=== PATIENT | male | born 1945 | race Caucasian/White ===

== ENCOUNTER → 2019-07-28 09:17 | Outpatient (CLI) | payer MEDICARE, OTHER, SELFPAY ==
--- NOTE | 2019-07-28 | DI.RAD.S_ITS ---
PROCEDURE: XR ABDOMEN 1V INDICATIONS: Calculus of kidney TECHNIQUE: One view of the abdomen acquired. COMPARISON: [facility], CR, XR ABDOMEN 1 VIEW, 06/30/2018, 11:01. [facility], CR, KUB XRAY (1 VIEW ABDOMEN), 04/13/2017, 8:00. [facility], CR, KUB XRAY (1 VIEW ABDOMEN), 08/26/2016, 14:08. [facility], CR, KUB XRAY (1 VIEW ABDOMEN), 02/07/2016, 9:29. [facility], CR, KUB XRAY (1 VIEW ABDOMEN), 01/07/2016, 13:32. CR, XR NEPHROSTOGRAM, 01/02/2016, 9:39. XA, NEPHROSTOMY WIRE PLACEMENT (P), 01/01/2016, 12:00. [facility], CT, KIDNEY/ URETER/BLADDER, 08/17/2012, 13:50. [facility], CR, ABDOMEN 1 VIEW, 09/28/2012, 7:24. FINDINGS: Surgical changes and devices: None. Bowel: Bowel gas pattern is normal. Soft tissues: No new suspicious abdominal calcifications. The multiple calculi seen over the right kidney, greater superiorly than inferiorly, have not appreciably changed from 06/30/18 but appears slightly larger than on the comparison plain film from 04/13/17. Faintly visualized small calcifications are present over the expected position of the collecting system of the left kidney, faintly visualized through colon content. Visualized solid organ contours appear normal in size. Bones: No suspicious bony lesions. IMPRESSION: No ureteral stone is suspected. Slight enlargement of right-sided urinary tract stones in the collecting system of the right kidney from 2016 but no change from June of last year. Faintly visualized small calculi appear present within the collecting system of the left kidney, measuring approximately 2 x 3 mm each. Dictated by: Selvin Patel M.D. on 07/28/2019 at 10:20 Approved by: Selvin Patel M.D. on 07/28/2019 at 10:22
== END ==
PROVIDERS: PCP Internal Medicine; Referring Provider Urology; Visit Provider Urology
DX: N20.0 Calculus of kidney (principal)
CPT/HCPCS: 74018

== ENCOUNTER 2020-06-12 11:47 | Emergency (ER) | payer MEDICARE, OTHER, SELFPAY ==
[2020-06-12] VITALS (18 sets, daily range): BP systolic 102–130; BP diastolic 53–73; PULSE 46–66; RESP 19–32; TEMP 36.5; O2SAT 96–99
--- NOTE | 2020-06-12 12:00 | DI.RAD.S_ITS ---
PROCEDURE: XR CHEST 1V INDICATIONS: chest pain TECHNIQUE: One view of the chest was acquired. COMPARISON: [facility], CR, CHEST 1VW, 08/19/2012, 11:55. [facility], CR, CHEST 2 VIEW, 12/25/2015, 14:22. FINDINGS: Surgical changes and devices: None. Lungs and pleura: Lung volumes are slightly diminished. Lungs are otherwise clear. No pleural effusions or pneumothorax. Mediastinum: Mediastinal contours appear normal. Heart size is normal. Bones and chest wall: No suspicious bony lesions. Overlying soft tissues appear unremarkable. IMPRESSION: Chest without acute cardiopulmonary abnormalities. Dictated by: Huseyin Domínguez M.D. on 06/12/2020 at 12:27 Approved by: Huseyin Domínguez M.D. on 06/12/2020 at 12:28
--- NOTE | 2020-06-12 12:18 | ED.GENADULT ---
HPI - General Adult General Chief complaint: Syncope Stated complaint: Syncope Time Seen by Provider: 06/12/20 12:03 Source: patient and EMS Mode of arrival: EMS History of Present Illness HPI narrative: 74-year-old gentleman with a history of coronary artery disease, hyperlipidemia, BPH presents after having a syncopal episode and [place]. Notes that he had a minor amount of nausea after taking medications on an empty stomach around 830 this morning but not so much that it did hurt him from getting [place] 9. He notes that he has dozed off while sitting at the machines previously. He has no recollection of the event. He describes no acute pain or trauma from the fall itself. He has no chest pain, dyspnea, abdominal pain, flank pain, dysuria, headache, rashes. He does note that he has had some mild diaphoresis associated with the fall. He was initially seen by medics and declined transport at that time. He then had some chills and call the medics back thinking that further evaluation might make more sense. Related Data Home Medications Medication Instructions Recorded Confirmed [CERTIZINE HCL] 10 mg PO AM #0 11/18/12 [OMEPRAZOLE] 20 mg PO #0 11/18/12 allopurinol 100 mg PO BID #0 11/18/12 isosorbide mononitrate 60 mg PO #0 11/18/12 metoprolol tartrate 50 mg PO BID #0 11/18/12 niacin [Niaspan Extended-Release] 500 mg PO QDAY #0 11/18/12 simvastatin [Zocor] 80 mg PO HS #0 11/18/12 tamsulosin [Flomax] 0.4 mg PO HS #0 11/18/12 Review of Systems Review of Systems Narrative: Remainder of review of systems including constitutional, ENT, cardiovascular, respiratory, GI, , musculoskeletal, skin, neurologic and psychiatric systems reviewed and are unremarkable except as noted in HPI. Patient History Medical History BPH (benign prostatic hyperplasia) Coronary artery disease Gout Hyperlipidemia Hypertension Social History Smoking Status: Former smoker Smoking Status: Former smoker alcohol intake frequency: 0-2 drinks per day Substance Use Type: does not use Exam Narrative Exam Narrative: General: Obese, disheveled, in no acute distress. Able to give a complete and coherent history. Well-nourished well-developed HEENT: Moist mucous membranes, normal sclera with reactive pupils, Neck: No JVD, supple Respiratory: Lungs are clear to auscultation, no wheezing no rales no rhonchi. Full and symmetrical air movement Cardiac: Regular rate and rhythm no murmurs no bruits Abdomen: Soft nontender good bowel tones, no flank pain Skin: Warm and dry, no rashes Neurologic: Grossly neurologically intact with no obvious asymmetries or abnormalities Extremities: No trauma, well perfused, 1+ bilateral lower extremity edema without chronic venous stasis changes Psych: Cooperative, appropriate insight and affect Initial Vital Signs Initial Vital Signs: Vital Signs Temperature 97.7 F 06/12/20 11:40 Pulse Rate 51 L 06/12/20 11:40 Respiratory Rate 32 H 06/12/20 11:40 Blood Pressure 126/60 06/12/20 11:40 Pulse Oximetry 98 06/12/20 11:40 Course Orders Ordered: ED Orders 06/12/20 11:59 COVID19 Stat 06/12/20 12:00 XR chest 1V Stat EKG-12 Lead Stat 06/12/20 12:25 Complete Blood Count AUTO DIFF Stat Comprehensive Metabolic Panel Stat Lipase Stat Magnesium Stat Partial Thromboplastin Time Stat Prothrombin Time INR Stat Troponin & CK Cardiac Panel Stat 06/12/20 12:53 Lactate (Lactic Acid) Stat 06/12/20 13:05 Blood Culture Stat 06/12/20 14:36 Troponin I Stat Discontinued Medications Sodium Chloride (Normal Saline 0.9%) 500 mls @ 1,000 mls/hr IV BOLUS ONE Stop: 06/12/20 14:09 Last Infusion: 06/12/20 14:53 Dose: 0 mls/hr Documented by: Admin: 06/12/20 13:42 Dose: 1,000 mls/hr Documented by: LALY Vital Signs Vital signs: Vital Signs - 8 hr 06/12/20 11:40 06/12/20 11:54 06/12/20 12:00 Temperature 97.7 F Pulse Rate 51 L 50 L 60 Pulse Rate [Orthostatic Lying] Pulse Rate [Orthostatic Sitting] Pulse Rate [Orthostatic Standing] Respiratory Rate 32 H 23 24 Blood Pressure 126/60 Blood Pressure [Orthostatic Lying] Blood Pressure [Orthostatic Sitting] Blood Pressure [Orthostatic Standing] Pulse Oximetry 98 99 97 06/12/20 12:01 06/12/20 12:16 06/12/20 12:30 Temperature Pulse Rate 48 L 51 L 49 L Pulse Rate [Orthostatic Lying] Pulse Rate [Orthostatic Sitting] Pulse Rate [Orthostatic Standing] Respiratory Rate 21 23 23 Blood Pressure 116/60 110/55 L 109/56 L Blood Pressure [Orthostatic Lying] Blood Pressure [Orthostatic Sitting] Blood Pressure [Orthostatic Standing] Pulse Oximetry 98 98 97 06/12/20 12:45 06/12/20 13:00 06/12/20 13:10 Temperature Pulse Rate 46 L 50 L 50 L Pulse Rate [Orthostatic Lying] Pulse Rate [Orthostatic Sitting] Pulse Rate [Orthostatic Standing] Respiratory Rate 23 22 24 Blood Pressure 102/53 L 112/59 L Blood Pressure [Orthostatic Lying] Blood Pressure [Orthostatic Sitting] Blood Pressure [Orthostatic Standing] Pulse Oximetry 99 98 99 06/12/20 13:15 06/12/20 13:30 06/12/20 13:45 Temperature Pulse Rate 47 L 49 L 49 L Pulse Rate [Orthostatic Lying] Pulse Rate [Orthostatic Sitting] Pulse Rate [Orthostatic Standing] Respiratory Rate 22 22 22 Blood Pressure 112/55 L 111/61 105/59 L Blood Pressure [Orthostatic Lying] Blood Pressure [Orthostatic Sitting] Blood Pressure [Orthostatic Standing] Pulse Oximetry 99 98 96 06/12/20 14:00 06/12/20 14:15 06/12/20 14:30 Temperature Pulse Rate 55 L 51 L 55 L Pulse Rate [Orthostatic Lying] Pulse Rate [Orthostatic Sitting] Pulse Rate [Orthostatic Standing] Respiratory Rate 23 24 24 Blood Pressure 106/60 109/64 105/72 Blood Pressure [Orthostatic Lying] Blood Pressure [Orthostatic Sitting] Blood Pressure [Orthostatic Standing] Pulse Oximetry 97 97 97 06/12/20 14:45 06/12/20 15:00 06/12/20 15:24 Temperature Pulse Rate 51 L 54 L Pulse Rate [Orthostatic Lying] 56 L Pulse Rate [Orthostatic Sitting] 66 Pulse Rate [Orthostatic Standing] 65 Respiratory Rate 19 20 Blood Pressure 105/73 107/67 Blood Pressure [Orthostatic Lying] 114/66 Blood Pressure [Orthostatic Sitting] 120/66 Blood Pressure [Orthostatic Standing] 130/60 Pulse Oximetry 98 97 Medical Decision Making Medical Records Medical records reviewed: Yes I reviewed the patient's medical records. Lab Data Lab results reviewed: Yes I reviewed the patient's lab results. Result diagrams: 06/12/20 12:25 06/12/20 12:25 Labs: Lab Results 06/12/20 06/12/20 06/12/20 Range/Units 11:59 12:25 12:25 WBC 6.7 (4.5-11.0) X10^3/uL RBC 3.72 L (4.5-5.9) X10^6/uL Hgb 11.9 L (13.5-17.5) g/dL Hct 36.9 L (41-53) % MCV 99.2 (80-100) fL MCH 32.1 (26-34) PG MCHC 32.3 (30-36) % RDW 14.4 (11.6-14.8) % Plt Count 105 L (150-400) X10^3/uL Neut % (Auto) 74.0 (50-75) % Lymph % (Auto) 17.5 L (25-40) % [place] % (Auto) 5.4 (3-14) % Eos % (Auto) 2.5 (2-4) % Baso % (Auto) 0.6 (0-2) % Neut # (Auto) 5000 (5020-6536) /uL Lymph # (Auto) 1200 (3622-5680) /uL [place] # (Auto) 400 (0-900) /uL Eos # (Auto) 200 (0-450) /uL Baso # (Auto) 0 (0-100) /uL PT 11.2 (10.1-12.7) SECONDS INR 1.0 (0.9-1.3) APTT 19 L (26.4-36.2) SECONDS Sodium (137-145) mmol/L Potassium (3.4-5.1) mmol/L Chloride (98-107) mmol/L Carbon Dioxide (22-32) mmol/L BUN (9-20) mg/dL Creatinine (0.66-1.25) mg/dL Estimated GFR (>60) mL/min BUN/Creatinine Ratio (6-22) Glucose (80-110) mg/dL Lactate (0.7-2.1) mmol/L Calcium (8.4-10.2) mg/dL Magnesium (1.6-2.3) mg/dL Total Bilirubin (0.2-1.3) mg/dL AST (17-59) IU/L ALT (<50) IU/L Alkaline Phosphatase (38-126) U/L Total Creatine Kinase (55-170) U/L CK-MB (CK-2) CK-MB (CK-2) Rel Index Troponin I (0.01-0.034) ng/mL Total Protein (6.3-8.2) g/dL Albumin (3.5-5.0) g/dL Globulin (1.7-4.1) g/dL Albumin/Globulin Ratio (1.0-2.8) Lipase (23-300) U/L SARS-CoV-2 (PCR) Negative (Negative) 06/12/20 06/12/20 06/12/20 Range/Units 12:25 12:53 14:36 WBC (4.5-11.0) X10^3/uL RBC (4.5-5.9) X10^6/uL Hgb (13.5-17.5) g/dL Hct (41-53) % MCV (80-100) fL MCH (26-34) PG MCHC (30-36) % RDW (11.6-14.8) % Plt Count (150-400) X10^3/uL Neut % (Auto) (50-75) % Lymph % (Auto) (25-40) % [place] % (Auto) (3-14) % Eos % (Auto) (2-4) % Baso % (Auto) (0-2) % Neut # (Auto) (2061-4367) /uL Lymph # (Auto) (3431-7136) /uL [place] # (Auto) (0-900) /uL Eos # (Auto) (0-450) /uL Baso # (Auto) (0-100) /uL PT (10.1-12.7) SECONDS INR (0.9-1.3) APTT (26.4-36.2) SECONDS Sodium 141 (137-145) mmol/L Potassium 4.3 (3.4-5.1) mmol/L Chloride 108 H (98-107) mmol/L Carbon Dioxide 27 (22-32) mmol/L BUN 34 H (9-20) mg/dL Creatinine 2.13 H (0.66-1.25) mg/dL Estimated GFR 30.4 L (>60) mL/min BUN/Creatinine Ratio 16.0 (6-22) Glucose 144 H (80-110) mg/dL Lactate 1.3 (0.7-2.1) mmol/L Calcium 8.7 (8.4-10.2) mg/dL Magnesium 1.7 (1.6-2.3) mg/dL Total Bilirubin 0.4 (0.2-1.3) mg/dL AST 26 (17-59) IU/L ALT 16 (<50) IU/L Alkaline Phosphatase 71 (38-126) U/L Total Creatine Kinase 65 (55-170) U/L CK-MB (CK-2) TNP CK-MB (CK-2) Rel Index TNP Troponin I < 0.012 < 0.012 (0.01-0.034) ng/mL Total Protein 6.1 L (6.3-8.2) g/dL Albumin 3.5 (3.5-5.0) g/dL Globulin 2.6 (1.7-4.1) g/dL Albumin/Globulin Ratio 1.3 (1.0-2.8) Lipase 91 (23-300) U/L SARS-CoV-2 (PCR) (Negative) Urine Dip Bedside Urine Glucose Negative Bedside Urine Bilirubin - Negative Bedside Urine Ketone - Negative Urine Specific [place] 1.030 Bedside Urine Occult Blood + Bedside Urine pH 6.0 Bedside Urine Protein - Negative Bedside Urine Urobilinogen - Negative Bedside Urine Nitrite - Negative Bedside Urine Leukocytes - Negative Esterase Point of care testing: Urine Dip Bedside Urine Glucose Negative Bedside Urine Bilirubin - Negative Bedside Urine Ketone - Negative Urine Specific [place] 1.030 Bedside Urine Occult Blood + Bedside Urine pH 6.0 Bedside Urine Protein - Negative Bedside Urine Urobilinogen - Negative Bedside Urine Nitrite - Negative Bedside Urine Leukocytes - Negative Esterase Imaging Data Chest x-ray: Radiologist's Impression: FINDINGS: Surgical changes and devices: None. Lungs and pleura: Lung volumes are slightly diminished. Lungs are otherwise clear. No pleural effusions or pneumothorax. Mediastinum: Mediastinal contours appear normal. Heart size is normal. Bones and chest wall: No suspicious bony lesions. Overlying soft tissues appear unremarkable. IMPRESSION: Chest without acute cardiopulmonary abnormalities. Dictated by: Huseyin Domínguez M.D. on 06/12/2020 at 12:27 ECG Data Attestation: I personally reviewed and interpreted this ECG as follows: Interpretation: Sinus Tahir at a rate of 58 Right bundle branch and left anterior fascicular block PVCs No acute ischemic changes No priors for comparison MDM Narrative Medical decision making narrative: 74-year-old gentleman with history of syncopal episode this morning while sitting in front of a slot machine. Initial troponin COVID and chest x-ray are all unremarkable. He is completely asymptomatic at this point. No evidence of acute infection. Tele monitoring shows episodes of sinus bradycardia into the 40s with patient being completely asymptomatic. Discharge Plan Departure Patient Disposition: Home Clinical Impression: Syncope due to orthostatic hypotension Instructions: DI for Syncope in Adults (Fainting) Activity Restrictions/Additional Instructions: Thank you for coming in today I did not find any evidence of acute infection today. Similarly, there was no evidence of heart attack, stroke, blood clot in her lungs, acute bleeding, abdominal infection or any other finding that could be a life-threatening explanation for your passing out today I suspect that the reason that you did pass out was related to your medications taken on an empty stomach. I would recommend that you have a small bit of food at least when you take your morning medications and do continue all of your morning medications. If you have new or worsening symptoms, please feel free to return to the emergency department Prescriptions: No Action allopurinol 100 MG tablet 100 mg PO BID Qty: 0 RF: 0 isosorbide mononitrate 60 MG tablet extended release 24 hr 60 mg PO Qty: 0 RF: 0 tamsulosin [Flomax] 0.4 MG capsule,extended release 24hr 0.4 mg PO HS Qty: 0 RF: 0 metoprolol tartrate 50 MG tablet 50 mg PO BID Qty: 0 RF: 0 niacin [Niaspan Extended-Release] 500 MG tablet extended release 24 hr 500 mg PO QDAY Qty: 0 RF: 0 simvastatin [Zocor] 5 MG tablet 80 mg PO HS Qty: 0 RF: 0 [OMEPRAZOLE] 20 mg PO Qty: 0 RF: 0 [CERTIZINE HCL] 10 mg PO AM Qty: 0 RF: 0 Referrals: Alonso Barr MD [Primary Care Provider] -
[2020-06-12 12:34] LABS: Add Manual Diff / Slide Review NO; Basophils Absolute Auto 0 /uL (0-100); Basophils Percent Auto 0.6 % (0-2); Eosinophils Absolute Auto 200 /uL (0-450); Eosinophils Percent Auto 2.5 % (2-4); Hematocrit 36.9 % (41-53); Hemoglobin 11.9 g/dL (13.5-17.5); Lymphocytes Absolute Auto 1200 /uL (1100-4500); Lymphocytes Percent Auto 17.5 % (25-40); Mean Corpuscular HGB Conc 32.3 % (30-36); Mean Corpuscular Hemoglobin 32.1 PG (26-34); Mean Corpuscular Volume 99.2 fL (80-100); Monocytes Absolute Auto 400 /uL (0-900); Monocytes Percent Auto 5.4 % (3-14); Neutrophils Absolute Auto 5000 /uL (1500-7000); Platelet Count 105 X10^3/uL (150-400); Red Blood Cell Count 3.72 X10^6/uL (4.5-5.9); Red Cell Distribution Width 14.4 % (11.6-14.8); White Blood Cell Count 6.7 X10^3/uL (4.5-11.0)
[2020-06-12 12:34] LABS: COVID19 -Nasal RAPID Negative (Negative)
[2020-06-12 12:35] LABS: Prothrombin Time 11.2 SECONDS (10.1-12.7)
[2020-06-12 12:37] LABS: PTT Partial Thromboplastin Tim 19 SECONDS (26.4-36.2)
[2020-06-12 12:39] LABS: Alanine Aminotransferase 16 IU/L (<50); Albumin 3.5 g/dL (3.5-5.0); Albumin Globulin Ratio 1.3 (1.0-2.8); Alkaline Phosphatase 71 U/L (38-126); Aspartate Aminotransferase 26 IU/L (17-59); Bilirubin Total 0.4 mg/dL (0.2-1.3); Blood Urea Nitrogen 34 mg/dL (9-20); Calcium 8.7 mg/dL (8.4-10.2); Carbon Dioxide 27 mmol/L (22-32); Chloride 108 mmol/L (98-107); Creatine Kinase 65 U/L (55-170); Estimated Glomerular Filt Rate 30.4 mL/min (>60); Globulin 2.6 g/dL (1.7-4.1); Glucose 144 mg/dL (80-110); HEMOLYSIS 23 (0-50); Lipase 91 U/L (23-300); Magnesium 1.7 mg/dL (1.6-2.3); Potassium 4.3 mmol/L (3.4-5.1); Sodium 141 mmol/L (137-145); Total Protein 6.1 g/dL (6.3-8.2)
[2020-06-12 12:51] LABS: Troponin I < 0.012 ng/mL (0.01-0.034)
[2020-06-12 13:12] LABS: Lactate (Lactic Acid) 1.3 mmol/L (0.7-2.1)
[2020-06-12] MEDS: SODIUM CHLORIDE 0.9% 500 ML 1000 ML IV (13:42)
[2020-06-12 15:05] LABS: Troponin I < 0.012 ng/mL (0.01-0.034)
== END 2020-06-12 15:47 | disposition home or self-care (01) ==
PROVIDERS: Emergency Provider Emergency Medicine; PCP Internal Medicine
DX: I95.1 Orthostatic hypotension (principal); I45.2 Bifascicular block; R00.1 Bradycardia, unspecified; Z20.822 Contact with and (suspected) exposure to COVID-19; W07.XXXA Fall from chair, initial encounter; Y92.59 Other trade areas as the place of occurrence of the external cause
CPT/HCPCS: 36415; 71045; 80053; 81003; 82550; 83605; 83690; 83735; 84484; 85025; 85610; 85730; 87040; 87635; 93005; 96360; 99283; 99284; C9803

== ENCOUNTER → 2022-03-25 09:04 | Outpatient (CLI) | payer MEDICARE, OTHER, SELFPAY ==
--- NOTE | 2022-03-25 | DI.RAD.S_ITS ---
PROCEDURE: XR KUB INDICATIONS: Calculus of kidney TECHNIQUE: One view of the abdomen acquired. COMPARISON: [facility], CR, XR ABDOMEN 1V, 07/28/2019, 9:17. FINDINGS: Surgical changes and devices: None. Bowel: Bowel gas pattern is normal. Soft tissues: Multiple calcifications are noted overlying the central portion of the right renal shadow appearing relatively unchanged. Previous calcification identified overlying the inferior pole appears to be more medially located when compared to 2019 exam. No calcifications are definitely identified overlying the left renal shadow. Bones: No suspicious bony lesions. IMPRESSION: Calcifications overlying the right renal shadow as above. Dictated by: Donna Mera M.D. on 03/25/2022 at 13:58 Approved by: Donna Mera M.D. on 03/25/2022 at 13:59
== END ==
PROVIDERS: PCP Internal Medicine; Referring Provider Urology; Visit Provider Urology
DX: N20.0 Calculus of kidney (principal)
CPT/HCPCS: 74018